=== PATIENT | female | born 1935 | race Caucasian/White ===

== ENCOUNTER 2020-09-29 12:56 | Inpatient (IN) ==
[2020-09-29 13:29] LABS: Basophils # 0.1 K/mcL (0.0-0.2); Basophils % 0.7 %; Eosinophils # 0.2 K/mcL (0.0-0.6); Eosinophils % 2.2 %; Hematocrit 34.7 % (35.3-44.9); Hemoglobin 11.1 g/dL (11.5-15.4); Immature Granulocytes % 0.1 % (0-4); Lymphocytes # 1.1 K/mcL (0.6-4.6); Lymphocytes % 13.1 %; Mean Corpuscular Hemoglobin 29.2 pg (28.0-33.3); Mean Corpuscular Volume 91.3 fL (83.0-100.0); Mean Platelet Volume 10.7 fL (9.4-12.4); Monocytes # 0.6 K/mcL (0.0-1.3); Monocytes % 7.7 %; Neutrophils # 6.3 K/mcL (1.6-8.9); Platelet Count 342 K/mcL (140-400); Red Cell Distribution Width 15.7 % (11.5-14.5); Segmented Neutrophils % 76.2 %; White Blood Count 8.3 K/mcL (4.3-11.1)
[2020-09-29 13:36] LABS: INR 1.2; Prothrombin Time 13.5 Seconds (9.4-12.1)
[2020-09-29 13:48] LABS: Troponin I < 0.03 ng/mL (< 0.04)
[2020-09-29 13:49] LABS: Albumin 3.8 g/dL (3.5-5.7); Albumin/Globulin Ratio 1.3 (1.1-2.2); Bilirubin,Total 0.5 mg/dL (0.3-1.0); Calcium 9.6 mg/dL (8.6-10.3); Globulin 2.9 g/dL (2.4-3.5); Magnesium 1.7 mg/dL (1.6-2.6); Potassium 3.8 mEq/L (3.5-5.1); Total Protein 6.7 g/dL (6.4-8.9)
[2020-09-29] MEDS ORDERED: metroNIDAZOLE 250 MG TABLET PO ONE (15:51)
[2020-09-29] MEDS ORDERED: Naloxone 0.4 MG/ML INJ IVP PRN (17:56)
[2020-09-29] MEDS ORDERED: Mag Hydrox/Al Hydrox/Simeth 30 ML UDC PO PRN (17:56)
[2020-09-29] MEDS ORDERED: Acetaminophen 325 MG TABLET PO PRN (17:56)
[2020-09-29] MEDS ORDERED: MOM Conc 10 ML UD.LIQ PO PRN (17:56)
[2020-09-29] MEDS: 0.9 % Sodium Chloride 1,000 ML IVC SCH (19:00)
[2020-09-29] MEDS: Famotidine 20 MG TABLET PO SCH (19:00)
[2020-09-29 19:30] LABS: Bilirubin,Urine Negative (Negative); Blood,Urine Negative (Negative); Clarity,Urine Clear (Clear); Color,Urine Yellow (Yellow); Glucose,Urine (UA) Normal (Normal); Ketones,Urine Negative (Negative); Leukocyte Esterase,Urine Negative (Negative); Nitrite,Urine Negative (Negative); Protein,Urine Negative (Neg-Trace); Specific Gravity,Urine 1.025 (1.010-1.025); Urobilinogen,Urine Normal (Normal)
[2020-09-30] MEDS: MetroNIDAZOLE 500 MG/100 ML 500 MG/100 ML BAG IVPB SCH ×3 (00:37→14:51)
[2020-09-30 05:51] LABS: Basophils # 0.1 K/mcL (0.0-0.2); Basophils % 0.8 %; Eosinophils # 0.3 K/mcL (0.0-0.6); Eosinophils % 4.6 %; Hematocrit 31.7 % (35.3-44.9); Hemoglobin 10.2 g/dL (11.5-15.4); Immature Granulocytes % 0.4 % (0-4); Lymphocytes # 1.7 K/mcL (0.6-4.6); Lymphocytes % 23.1 %; Mean Corpuscular HGB Conc 32.2 g/dL (31.6-35.5); Mean Corpuscular Hemoglobin 28.9 pg (28.0-33.3); Mean Corpuscular Volume 89.8 fL (83.0-100.0); Mean Platelet Volume 10.1 fL (9.4-12.4); Monocytes # 0.7 K/mcL (0.0-1.3); Monocytes % 9.4 %; Neutrophils # 4.5 K/mcL (1.6-8.9); Platelet Count 258 K/mcL (140-400); Red Blood Count 3.53 M/mcL (3.82-4.97); Red Cell Distribution Width 15.6 % (11.5-14.5); Segmented Neutrophils % 61.7 %; White Blood Count 7.2 K/mcL (4.3-11.1)
[2020-09-30 06:08] LABS: Calcium 8.9 mg/dL (8.6-10.3); Potassium 3.4 mEq/L (3.5-5.1)
[2020-09-30] MEDS: *HR* Amiodarone 200 MG TABLET PO SCH (07:43)
[2020-09-30] MEDS: carvediloL 6.25 MG TABLET PO SCH ×2 (07:43→20:23)
[2020-09-30] MEDS: cefTRIAXone 1,000 MG in 0.9 % Sodium Chloride Mini Bag 100 ML IVPB SCH (07:43)
[2020-09-30] MEDS: 0.9 % Sodium Chloride 1,000 ML IVC SCH (08:30)
[2020-09-30] MEDS: Famotidine 20 MG TABLET PO SCH ×2 (18:10→20:23)
[2020-09-30] MEDS: Ondansetron 4 MG/2 ML VIAL IVP PRN (20:22)
[2020-10-01] MEDS: MetroNIDAZOLE 500 MG/100 ML 500 MG/100 ML BAG IVPB SCH ×3 (00:33→16:17)
[2020-10-01] MEDS: 0.9 % Sodium Chloride 1,000 ML IVC SCH ×2 (03:43→10:35)
[2020-10-01 06:40] LABS: Basophils % 0.6 %; Eosinophils # 0.1 K/mcL (0.0-0.6); Eosinophils % 1.4 %; Hematocrit 31.6 % (35.3-44.9); Hemoglobin 10.1 g/dL (11.5-15.4); Immature Granulocytes % 0.4 % (0-4); Lymphocytes # 0.9 K/mcL (0.6-4.6); Lymphocytes % 12.9 %; Mean Corpuscular Hemoglobin 28.9 pg (28.0-33.3); Mean Corpuscular Volume 90.3 fL (83.0-100.0); Mean Platelet Volume 9.3 fL (9.4-12.4); Monocytes # 0.4 K/mcL (0.0-1.3); Monocytes % 6.1 %; Neutrophils # 5.5 K/mcL (1.6-8.9); Platelet Count 230 K/mcL (140-400); Red Cell Distribution Width 15.2 % (11.5-14.5); Segmented Neutrophils % 78.6 %
[2020-10-01 07:30] LABS: BUN/Creatinine Ratio 18 (6-26); Blood Urea Nitrogen 15 mg/dL (8-23); Calcium 8.8 mg/dL (8.6-10.3); Carbon Dioxide 25 mEq/L (23-29); Chloride 107 mEq/L (98-107); Glucose 104 mg/dL (70-105); Osmolality,Calculated 289 (280-300); Potassium 3.8 mEq/L (3.5-5.1); Sodium 139 mEq/L (136-145); eGFR For African Americans > 60 (> 60); eGFR For Non-African Americans > 60 (> 60)
[2020-10-01] MEDS: *HR* Amiodarone 200 MG TABLET PO SCH (08:21)
[2020-10-01] MEDS: carvediloL 6.25 MG TABLET PO SCH ×2 (08:21→17:09)
[2020-10-01] MEDS: Ondansetron 4 MG/2 ML VIAL IVP PRN (10:34)
[2020-10-01] MEDS: cefTRIAXone 1,000 MG in 0.9 % Sodium Chloride Mini Bag 100 ML IVPB SCH (10:34)
[2020-10-01] MEDS: Aspirin Enteric Coated 81 MG Tablet PO SCH (12:19)
[2020-10-01] MEDS: *HR* Rivaroxaban 10 MG TABLET PO SCH (17:09)
[2020-10-01] MEDS: Famotidine 20 MG TABLET PO SCH (21:00)
[2020-10-01] MEDS: metroNIDAZOLE 500 MG TABLET PO SCH (21:00)
[2020-10-01] MEDS: Ondansetron ODT 4 MG TAB.RAPDIS SL PRN (22:54)
[2020-10-02] MEDS: *HR* Amiodarone 200 MG TABLET PO SCH (09:31)
[2020-10-02] MEDS: metroNIDAZOLE 500 MG TABLET PO SCH ×3 (09:31→20:06)
[2020-10-02] MEDS: Aspirin Enteric Coated 81 MG Tablet PO SCH (09:31)
[2020-10-02] MEDS: carvediloL 6.25 MG TABLET PO SCH ×2 (09:31→16:55)
[2020-10-02] MEDS: Famotidine 20 MG TABLET PO SCH ×2 (09:31→20:06)
[2020-10-02] MEDS ORDERED: 0.9 % Sodium Chloride 1,000 ML IVC SCH (15:30)
[2020-10-02] MEDS: *HR* Rivaroxaban 10 MG TABLET PO SCH (16:55)
[2020-10-03] MEDS: *HR* Amiodarone 200 MG TABLET PO SCH (08:20)
[2020-10-03] MEDS: metroNIDAZOLE 500 MG TABLET PO SCH ×3 (08:20→21:10)
[2020-10-03] MEDS: Aspirin Enteric Coated 81 MG Tablet PO SCH (08:21)
[2020-10-03] MEDS: Famotidine 20 MG TABLET PO SCH ×2 (08:21→21:10)
[2020-10-03] MEDS: carvediloL 6.25 MG TABLET PO SCH (08:21)
[2020-10-03 09:26] LABS: Basophils # 0.1 K/mcL (0.0-0.2); Basophils % 1.2 %; Eosinophils # 0.3 K/mcL (0.0-0.6); Eosinophils % 4.1 %; Hematocrit 33.6 % (35.3-44.9); Hemoglobin 10.3 g/dL (11.5-15.4); Immature Granulocytes % 0.4 % (0-4); Lymphocytes # 1.1 K/mcL (0.6-4.6); Lymphocytes % 14.7 %; Mean Corpuscular HGB Conc 30.7 g/dL (31.6-35.5); Mean Corpuscular Hemoglobin 29.3 pg (28.0-33.3); Mean Corpuscular Volume 95.5 fL (83.0-100.0); Mean Platelet Volume 9.6 fL (9.4-12.4); Monocytes # 0.7 K/mcL (0.0-1.3); Neutrophils # 5.5 K/mcL (1.6-8.9); Platelet Count 244 K/mcL (140-400); Red Blood Count 3.52 M/mcL (3.82-4.97); Red Cell Distribution Width 15.5 % (11.5-14.5); Segmented Neutrophils % 70.6 %; White Blood Count 7.8 K/mcL (4.3-11.1)
[2020-10-03 09:41] LABS: BUN/Creatinine Ratio 17 (6-26); Blood Urea Nitrogen 15 mg/dL (8-23); Calcium 8.9 mg/dL (8.6-10.3); Carbon Dioxide 25 mEq/L (23-29); Chloride 105 mEq/L (98-107); Glucose 120 mg/dL (70-105); Osmolality,Calculated 286 (280-300); Potassium 3.2 mEq/L (3.5-5.1); Sodium 137 mEq/L (136-145); eGFR For African Americans > 60 (> 60); eGFR For Non-African Americans > 60 (> 60)
[2020-10-03] MEDS: carvediloL 25 MG TABLET PO SCH (17:29)
[2020-10-03] MEDS: *HR* Rivaroxaban 15 MG TABLET PO SCH (17:29)
[2020-10-04] MEDS: carvediloL 25 MG TABLET PO SCH ×4 (08:21→18:22)
[2020-10-04] MEDS: *HR* Amiodarone 200 MG TABLET PO SCH ×3 (08:21→09:41)
[2020-10-04] MEDS: Aspirin Enteric Coated 81 MG Tablet PO SCH ×3 (08:21→09:40)
[2020-10-04] MEDS: Famotidine 20 MG TABLET PO SCH ×4 (08:21→20:53)
[2020-10-04] MEDS: metroNIDAZOLE 500 MG TABLET PO SCH ×5 (08:21→20:53)
[2020-10-04] MEDS: *HR* Rivaroxaban 15 MG TABLET PO SCH (18:21)
[2020-10-05] MEDS: carvediloL 25 MG TABLET PO SCH ×2 (08:05→18:22)
[2020-10-05] MEDS: Famotidine 20 MG TABLET PO SCH ×2 (08:06→20:04)
[2020-10-05] MEDS: *HR* Amiodarone 200 MG TABLET PO SCH (08:06)
[2020-10-05] MEDS: Aspirin Enteric Coated 81 MG Tablet PO SCH (08:06)
[2020-10-05 08:48] LABS: Hematocrit 33.2 % (35.3-44.9); Hemoglobin 10.8 g/dL (11.5-15.4); Mean Corpuscular HGB Conc 32.5 g/dL (31.6-35.5); Mean Corpuscular Hemoglobin 29.2 pg (28.0-33.3); Mean Corpuscular Volume 89.7 fL (83.0-100.0); Mean Platelet Volume 9.7 fL (9.4-12.4); Platelet Count 267 K/mcL (140-400); Red Cell Distribution Width 15.4 % (11.5-14.5); White Blood Count 7.7 K/mcL (4.3-11.1)
[2020-10-05 09:10] LABS: BUN/Creatinine Ratio 16 (6-26); Blood Urea Nitrogen 14 mg/dL (8-23); Carbon Dioxide 27 mEq/L (23-29); Chloride 104 mEq/L (98-107); Glucose 102 mg/dL (70-105); Osmolality,Calculated 287 (280-300); Potassium 3.5 mEq/L (3.5-5.1); Sodium 138 mEq/L (136-145); eGFR For African Americans > 60 (> 60); eGFR For Non-African Americans 60 (> 60)
[2020-10-05] MEDS: *HR* Rivaroxaban 15 MG TABLET PO SCH (18:23)
[2020-10-06] MEDS: Aspirin Enteric Coated 81 MG Tablet PO SCH (09:21)
[2020-10-06] MEDS: carvediloL 25 MG TABLET PO SCH ×2 (09:21→17:09)
[2020-10-06] MEDS: *HR* Amiodarone 200 MG TABLET PO SCH (09:21)
[2020-10-06] MEDS: Famotidine 20 MG TABLET PO SCH ×2 (09:21→20:20)
[2020-10-06] MEDS: *HR* Rivaroxaban 15 MG TABLET PO SCH (17:09)
[2020-10-06] MEDS ORDERED: 0.9 % Sodium Chloride 1,000 ML ONE (18:58)
[2020-10-06] MEDS ORDERED: 0.9 % Sodium Chloride 1,000 ML IVC SCH (19:00)
[2020-10-07] MEDS: Famotidine 20 MG TABLET PO SCH ×2 (08:29→21:06)
[2020-10-07] MEDS: *HR* Amiodarone 200 MG TABLET PO SCH (08:29)
[2020-10-07] MEDS: Aspirin Enteric Coated 81 MG Tablet PO SCH (08:29)
[2020-10-07] MEDS: carvediloL 25 MG TABLET PO SCH ×3 (08:29→18:00)
[2020-10-07] MEDS ORDERED: 0.9 % Sodium Chloride 1,000 ML ONE (11:38)
[2020-10-07] MEDS: 0.9 % Sodium Chloride 1,000 ML IVC SCH ×2 (12:25→21:15)
[2020-10-07] MEDS: *HR* Rivaroxaban 15 MG TABLET PO SCH ×2 (17:57→18:00)
[2020-10-07] MEDS: Ondansetron ODT 4 MG TAB.RAPDIS SL PRN (17:57)
[2020-10-07] MEDS ORDERED: *HR* Metoprolol 5 MG/5 ML VIAL IVP ONE (19:05)
[2020-10-08 06:36] VITALS: BP 133/82
[2020-10-08] MEDS: Aspirin Enteric Coated 81 MG Tablet PO SCH (10:30)
[2020-10-08] MEDS: Famotidine 20 MG TABLET PO SCH (10:30)
[2020-10-08] MEDS: carvediloL 25 MG TABLET PO SCH (10:30)
[2020-10-08] MEDS: *HR* Amiodarone 200 MG TABLET PO SCH (10:30)
[2020-10-08] MEDS: 0.9 % Sodium Chloride 1,000 ML IVC SCH ×2 (13:19→13:42)
== END 2020-10-08 15:58 | disposition hospice, home (50) | DRG 392 ==
LOC: INPPIK 12:56 → EMEROOPIK 12:56 → INPPIK 18:22
PROVIDERS: ADMIT Family Medicine; ATTEND Family Medicine